=== PATIENT | female | born 1990 | race Caucasian/White ===

== ENCOUNTER 2019-07-13 22:47 | Emergency (ER) | payer MEDICAID ==
[~2019-07-13] VITALS: Ht 162.6 cm; Wt 54.4 kg
[2019-07-13 22:55] VITALS: BP_SYST 130
[2019-07-14 00:42] LABS: BILIRUBIN,URINE NEGATIVE (NEGATIVE); BLOOD, URINE NEGATIVE (NEGATIVE); CLARITY/URINE CLEAR (CLEAR); COLOR,URINE YELLOW (YELLOW); GLUCOSE,URINE NEGATIVE (NEGATIVE); KETONES,URINE NEGATIVE (NEGATIVE); LEUKOCYTE ESTERASE ,URINE NEGATIVE (NEGATIVE); NITRITE, URINE NEGATIVE (NEGATIVE); PH,URINE 6.5 (5.0-8.0); PROTEIN URINE NEGATIVE (NEGATIVE); UROBILINOGEN,URINE 0.2 (0.2-1.0)
[2019-07-14 00:46] LABS: HCG,QUAL RESULT NEGATIVE (NEGATIVE)
[2019-07-14] MEDS ORDERED: cefTRIAXone 250 MG in LIDOCAINE 1%, 20 ML MDV 0.9 ML IM ONE (01:00)
[2019-07-14] MEDS ORDERED: metroNIDAZOLE 500 MG TABLET PO ONE (01:00)
[2019-07-14] MEDS ORDERED: AZITHROMYCIN 250 MG TABLET PO ONE (01:00)
[2019-07-14] MEDS ORDERED: IBUPROFEN 800 MG TABLET PO ONE (01:15)
[2019-07-14 01:55] VITALS: BP_SYST 128
[2019-07-16 01:06] LABS: CHLAMYDIA TRACHOMATIS NAA Negative (Negative); NEISSERIA GONORRHOEAE NAA Negative (Negative)
== END 2019-07-14 00:15 | disposition home or self-care (01) ==
LOC: SED 22:47
DX: N89.8 Other specified noninflammatory disorders of vagina (principal); L29.9 Pruritus, unspecified; Z59.0 Homelessness
CPT/HCPCS: 81003; 81025; 84703; 87491; 87591; 96372; 99284; J0696; J2001; Q0144